=== PATIENT | female | born 1995 | race Caucasian/White ===

== ENCOUNTER 2022-07-25 14:56 | Emergency (ER) | payer OTHER ==
[~2022-07-25] VITALS: Ht 157.5 cm; Wt 59.9 kg
--- NOTE | 2022-07-25 15:37 | NUR ---
Pt arrived in the ED with chief complaint of sore throat, difficulty of swallowing that started a week ago - per pt. Denies headache, n/v, dizziness. Seen by Dr. Lamb for MSE.
[2022-07-25] MEDS ORDERED: METOCLOPRAMIDE HCL 10 MG/2 ML VIAL IV ONE (15:45)
[2022-07-25] MEDS ORDERED: IV NORMAL SALINE 500 ML BAG IV ONE (15:45)
[2022-07-25] MEDS ORDERED: ACETAMINOPHEN 325 MG TABLET PO ONE (15:45)
[2022-07-25] MEDS ORDERED: KETOROLAC TROMETHAMINE 15 MG INJ IVP ONE (15:45)
[2022-07-25] MEDS ORDERED: KETOROLAC TROMETHAMINE 15 MG INJ ONE (15:52)
[2022-07-25] MEDS ORDERED: METOCLOPRAMIDE HCL 10 MG/2 ML VIAL ONE (15:52)
[2022-07-25] MEDS ORDERED: ACETAMINOPHEN 325 MG TABLET ONE (15:52)
[2022-07-25 15:59] LABS: HEMATOCRIT 39.6 % (31.2-41.9); MEAN CORPUSCULAR HEMOGLOBIN 29.7 uug (24.7-32.8); MEAN CORPUSCULAR VOLUME 88.1 fL (75.5-95.3); PLATELET COUNT (AUTO) 324 K/uL (179-408)
[2022-07-25 16:30] LABS: CREATININE 0.7 mg/dL (0.6-1.3); POTASSIUM 4.4 mmol/L (3.5-5.1)
[2022-07-25 16:34] LABS: BILIRUBIN,TOTAL 0.4 mg/dL (0.2-1.0); TOTAL PROTEIN, SERUM 8.2 g/dL (6.4-8.2)
[2022-07-25 18:26] VITALS: BP 127/78
--- NOTE | 2022-07-25 18:26 | NUR ---
Patient discharged to home in stable condition. Written and verbal after care instructions given. Patient verbalizes understanding of instructions. Stressed follow up or return to ER for worsening s/s.
== END 2022-07-25 18:25 | disposition home or self-care (01) ==
LOC: ER 14:56
DX: R51.9 Headache, unspecified (principal); J02.9 Acute pharyngitis, unspecified; Z20.822 Contact with and (suspected) exposure to COVID-19
CPT/HCPCS: 99284; 96374; 96361; 96375; 87426; 80053; 85025; 86403; 84484; 36415; J1885; J2765; J7040; A4663

== ENCOUNTER 2022-08-19 13:20 | Emergency (ER) | payer OTHER ==
[~2022-08-19] VITALS: Ht 157.5 cm; Wt 59.9 kg
--- NOTE | 2022-08-19 14:17 | NUR ---
seen and examined by MD Hunt
[2022-08-19] MEDS ORDERED: IV NORMAL SALINE 1000 ML BAG IV ONE (14:30)
[2022-08-19] MEDS ORDERED: hydrOXYzine HCL 10 MG TABLET PO ONE (14:30)
[2022-08-19 14:33] LABS: MEAN CORPUSCULAR HEMOGLOBIN 29.6 uug (24.7-32.8); MEAN CORPUSCULAR VOLUME 88.1 fL (75.5-95.3); PLATELET COUNT (AUTO) 280 K/uL (179-408)
[2022-08-19 14:51] LABS: CARBON DIOXIDE 25 mmol/L (21-32); CHLORIDE 103 mmol/L (98-107); CREATININE 0.6 mg/dL (0.6-1.3); GLUCOSE 93 mg/dL (74-106); POTASSIUM 3.9 mmol/L (3.5-5.1); UREA NITROGEN, BLOOD 6 mg/dL (7-18)
[2022-08-19] MEDS ORDERED: hydrOXYzine HCL 10 MG TABLET ONE (14:56)
[2022-08-19] MEDS ORDERED: HYDR10TA37 PO (16:51)
--- NOTE | 2022-08-19 17:20 | NUR ---
PT WAS D/C'd TO HOME D/C INSTRUCTIONS GIVEN TO THE PT BY DR STACK.
[2022-08-19 17:23] VITALS: BP 124/69
== END 2022-08-19 17:25 | disposition home or self-care (01) ==
LOC: ER 13:20
DX: F41.9 Anxiety disorder, unspecified (principal); R07.89 Other chest pain; Z73.3 Stress, not elsewhere classified; Z90.49 Acquired absence of other specified parts of digestive tract
CPT/HCPCS: 36415; 71045; 84443; 84484; 85025; A4663

== ENCOUNTER 2023-07-11 14:25 | Emergency (ER) | payer OTHER ==
[~2023-07-11] VITALS: Ht 157.5 cm; Wt 61.7 kg
[~2023-07-11 14:25] MED LIST: HYDR10TA37 PO
[2023-07-11] MEDS ORDERED: IBUP-1955 PO (15:12)
[2023-07-11 16:23] VITALS: BP 121/83; TEMP 98.3; O2SAT 98
== END 2023-07-11 16:30 | disposition home or self-care (01) ==
LOC: ER 16:30
DX: S93.492A Sprain of other ligament of left ankle, initial encounter (principal); Z79.899 Other long term (current) drug therapy; Z90.49 Acquired absence of other specified parts of digestive tract; X50.1XXA Overexertion from prolonged static or awkward postures, initial encounter; Y93.89 Activity, other specified; Y92.89 Other specified places as the place of occurrence of the external cause; Y99.8 Other external cause status
CPT/HCPCS: 73610; A4606; A4663